=== PATIENT | male | born 1950 | race Caucasian/White ===

== ENCOUNTER 2017-02-15 17:47 | Inpatient (IN) | payer MEDICARE, OTHER ==
[~2017-02-15] VITALS: Ht 182.9 cm; Wt 74.2 kg
[2017-02-15] MEDS ORDERED: ATEN25TA PO (17:58)
[2017-02-15] MEDS ORDERED: BACL10TA2 PO (17:58)
[2017-02-15] MEDS ORDERED: VITA50003 (17:58)
[2017-02-15] MEDS ORDERED: ZOLP5TAB (17:58)
[2017-02-15] MEDS ORDERED: AMIT10TA (17:58)
[2017-02-15] MEDS ORDERED: NS 1,000 ML IV SCH (18:56)
[2017-02-15 19:25] LABS: BASO % 0.5 % (0.0-1.0); EOS # 0.2 K/mm3 (0.0-0.50); EOS % 2.9 % (0.0-3.0); LARGE UNSTAINED CELL # 0.1 K/mm3 (0.0-0.4); LARGE UNSTAINED CELL % 1.7 % (0.0-4.0); LYMPH # 1.7 K/mm3 (1.5-4.5); LYMPH % 28.8 % (24.0-44.0); MEAN CORPUSCULAR HEMOGLOBIN 32.8 pg (27.0-33.0); MEAN CORPUSCULAR HGB CONC 33.7 g/dl (32.0-36.5); MEAN CORPUSCULAR VOLUME 97.3 fl (80.0-96.0); MONO # 0.4 K/mm3 (0.0-0.8); MONO % 7.1 % (0.0-5.0); NEUTROPHILS # 3.5 K/mm3 (1.8-7.7); PLATELET COUNT, AUTOMATED 203 k/mm3 (150-450); RED CELL DISTRIBUTION WIDTH 12.5 % (11.5-14.5); WHITE BLOOD COUNT 5.9 K/mm3 (4.0-10.0)
--- NOTE | 2017-02-15 19:33 | ECGEPIP ---
Stationary ECG Study [facility] - ED Test Date: 2017-02-15 Pat Name: ALFREDITO CARRION Department: Room: - Gender: M Surgical Assistant: : 1950 Requested By: ZARINA Zamora Order Number: [id number] Reading MD: Hay Pascal Measurements Intervals [place] Rate: 122 P: FL: 0 QRS: 7 QRSD: 92 T: -18 QT: 320 QTc: 457 Interpretive Statements ATRIAL FIBRILLATION WITH RAPID VENTRICULAR RESPONSE LOW QRS VOLTAGE IN EXTREMITY LEADS MODERATE ST DEPRESSION NO PRIORS Electronically Signed On 02-15-2017 19:33:17 EDT by Hay Pascal
[2017-02-15 19:48] LABS: ALBUMIN 3.3 GM/DL (3.2-5.2); ALBUMIN/GLOBULIN RATIO 0.79 (1.00-1.93); BILIRUBIN,DIRECT 0.2 MG/DL (0.0-0.2); BILIRUBIN,TOTAL 0.7 MG/DL (0.2-1.0); CALCIUM LEVEL 8.5 MG/DL (8.8-10.2); CREATININE FOR GFR 1.35 MG/DL (0.70-1.30); GLOMERULAR FILTRATION RATE 56.1 (>49); POTASSIUM SERUM 4.3 MEQ/L (3.5-5.1); TOTAL PROTEIN 7.5 GM/DL (6.4-8.2)
[2017-02-15] MEDS: METOPROLOL 5 MG/5 ML VIAL IV SCH ×3 (20:14→20:44)
[2017-02-15] MEDS ORDERED: ATENOLOL 50 MG TAB PO ONE (21:30)
[2017-02-15] MEDS ORDERED: ERGO500014 PO (21:34)
[2017-02-15] MEDS ORDERED: SENOKOT S TAB PO ONE (21:45)
[2017-02-15] MEDS ORDERED: DIGOXIN INJ 0.5 MG/2 ML AMP (J1160) IV ONE (21:45)
[2017-02-15] MEDS ORDERED: RIVAROXABAN 20 MG TAB (XARELTO) PO ONE (21:45)
[2017-02-15] MEDS ORDERED: MOM 30ML SUSPENSION UDC PO ONE (21:45)
[2017-02-15 23:10] VITALS: BP 98/64
[2017-02-16] MEDS ORDERED: MOM 30ML SUSPENSION UDC PO PRN (02:15)
[2017-02-16] MEDS ORDERED: NS 1,000 ML IV SCH (02:15)
[2017-02-16] MEDS ORDERED: FLEET ENEMA PR PRN (02:15)
[2017-02-16 04:00] VITALS: BP 100/70
[2017-02-16] MEDS ORDERED: DIGOXIN INJ 0.5 MG/2 ML AMP (J1160) IV ONE (04:00)
[2017-02-16 05:37] LABS: BASO % 0.6 % (0.0-1.0); EOS # 0.1 K/mm3 (0.0-0.50); LARGE UNSTAINED CELL # 0.1 K/mm3 (0.0-0.4); LARGE UNSTAINED CELL % 1.5 % (0.0-4.0); LYMPH # 1.4 K/mm3 (1.5-4.5); LYMPH % 21.2 % (24.0-44.0); MEAN CORPUSCULAR HEMOGLOBIN 32.5 pg (27.0-33.0); MEAN CORPUSCULAR HGB CONC 34.1 g/dl (32.0-36.5); MEAN CORPUSCULAR VOLUME 95.5 fl (80.0-96.0); MONO # 0.5 K/mm3 (0.0-0.8); MONO % 7.8 % (0.0-5.0); NEUTROPHILS % 66.9 % (36.0-66.0); PLATELET COUNT, AUTOMATED 173 k/mm3 (150-450); RED CELL DISTRIBUTION WIDTH 12.7 % (11.5-14.5)
[2017-02-16 05:54] LABS: ANION GAP 8 MEQ/L (8-16); BLOOD UREA NITROGEN 24 MG/DL (7-18); CALCIUM LEVEL 8.1 MG/DL (8.8-10.2); CARBON DIOXIDE LEVEL 23 MEQ/L (21-32); CHLORIDE LEVEL 109 MEQ/L (98-107); CREATININE FOR GFR 1.23 MG/DL (0.70-1.30); DIGOXIN LEVEL 1.2 NG/ML (0.5-2.0); GLOMERULAR FILTRATION RATE > 60.0 (>49); GLUCOSE, FASTING 80 MG/DL (80-110); POTASSIUM SERUM 4.3 MEQ/L (3.5-5.1); SODIUM LEVEL 140 MEQ/L (136-145)
--- NOTE | 2017-02-16 07:46 | REP ---
Clinical: Altered mental status. Technique: PA and lateral chest. Findings: Mediastinum and cardiac silhouette are normal. Diffuse chronic interstitial changes are suspected and should be correlated clinically. Lateral view raises the possibility of trace basilar atelectasis. No effusion. No pneumothorax. Skeletal structures intact. Impression: Chronic interstitial changes are suggested. Trace basilar atelectasis cannot be excluded. Signed by Mark Conrad MD 02/16/2017 07:37 A
--- NOTE | 2017-02-16 07:57 | REP ---
Clinical: Constipation. Technique: Supine views of the chest and abdomen/pelvis. Findings: Frontal view of the chest suggests chronic interstitial changes and should be correlated clinically. Bowel gas pattern is nonspecific although mild/moderate fecal stasis involving the ascending colon and rectum are suggested. Skeletal structures demonstrate age-related degenerative changes. No organomegaly. No abnormal calcifications. Impression: Possible fecal stasis. No evidence for bowel obstruction. Signed by Mark Conrad MD 02/16/2017 07:49 A
[2017-02-16 08:00] VITALS: BP 105/62
--- NOTE | 2017-02-16 08:46 | HPE ---
DATE OF ADMISSION: 02/15/2017 PRIMARY CARE PHYSICIAN: Derrick Moran INPATIENT HOSPITALIST ATTENDING: Dr. Cherelle Flores CHIEF COMPLAINT: The patient is nonverbal. History is obtained from medical records as no family members are available. Per records, the patient had, per the sister, the patient has not had a bowel movement in 2 weeks. HISTORY OF THE PRESENT ILLNESS: This is a 67-year-old DO NOT RESUSCITATE, DO NOT INTUBATE, nonverbal patient, wheelchair bound with a history of ALS, atrial fibrillation, not on anticoagulation, on chronic atenolol, chronic interstitial lung disease and fibrosis, who was brought in by the family due to a 2-week history of constipation without bowel movements at home. Per records, the patient has not been voiding regularly. His sister reports that this may be the end of the disease process and was brought in for further evaluation. The patient is nonverbal. Otherwise denied any fever or chills. No worsening shortness of breath, chest pain, pressure, tightness or lightheadedness. No dysuria, urgency or frequency. The patient is contracted with very dry skin. He was found to have acute kidney injury, creatinine of 1.35, given intravenous fluids in the emergency room. Chest x-ray shows chronic fibrosis. Abdominal film shows nonspecific bowel gas pattern. CT of the head shows chronic microvascular disease. No acute cerebrovascular accident. According to family, the patient has also had some altered mental status. Workup included CBC, metabolic panel, all of which are unremarkable aside from acute kidney injury, most likely due to dehydration due to decreased oral intake. Urinalysis was negative. No antibiotics given in the emergency room (ER). Hospitalist service was called for admission for evaluation of altered mental status, treatment for acute kidney injury and atrial fibrillation with rapid ventricular response (RVR). Before hospitalist service was called, EKG showed atrial fibrillation, ventricular rate of 22. Clinical Informatics Physician manager occupational, Dr. Singh, recommended atenolol 50 mg. The patient received 50 mg dose in the emergency room. Blood pressure dropped into a systolic pressure of 98. The patient continued to have a heart rate of 115 to 122. Hospitalist service was called for admission for atrial fibrillation with RVR, altered mental status, acute kidney injury with chronic history of ALS and prior history of paroxysmal atrial fibrillation, not on chronic anticoagulation. Due to systolic pressure of 98, the patient was given intravenous digoxin, improvement in heart rate to 76. At the bedside, still in atrial fibrillation. PAST MEDICAL HISTORY ALS. Chronic pulmonary interstitial fibrosis. Prior history of paroxysmal atrial fibrillation, not on anticoagulation. PAST SURGICAL HISTORY: Unknown. SOCIAL HISTORY: Lives with sister. DO NOT RESUSCITATE, DO NOT INTUBATE. No alcohol or cigarette use. FAMILY HISTORY: Unknown. REVIEW OF SYSTEMS: Could not be obtained as the patient is nonverbal, no one is at the bedside. PHYSICAL EXAMINATION: Temperature 97.9, pulse 60, respiratory rate 18, blood pressure 121/81 at 18:09. At 21:27 heart rate atrial fibrillation, ventricular rate of 129. Blood pressure 98/64, 98% on room air. Generally, the patient moans to his name. He is awake, alert, oriented to his name only. He is nonverbal. He is contracted. Muscle atrophy. Appears older than his stated age. No respiratory distress. No jugular venous distention. No thyromegaly. No cervical lymphadenopathy. Tongue is moist. Lungs are clear to auscultation. No wheezing, rales, or rhonchi. Heart: S1, S2, irregularly irregular. Abdomen is soft, nontender, nondistended. Positive bowel sounds. No sacral decubitus. The patient has very dry skin with sloughing of his skin bilateral lower extremities. Onychomycosis bilateral toes on both feet, contracted with significant muscle atrophy of the bilateral lower extremities. The patient has purposeful movements , opens his eyes and moans. LABORATORY DATA: White count 5.9, hemoglobin 15, hematocrit 47, platelet count 203. Sodium 139, potassium 4.3, chloride 106, bicarbonate 26, BUN 26, creatinine 1.35. Previous creatinine was 1.2 in 2012. Glucose of 77, calcium 8.5, troponin less than 0.02, total CK 126, MB fraction of 3.5, albumin of 3.3. Urinalysis; Clear appearance. Negative nitrite, negative leukocyte esterase, 0 WBCs, negative bacteria. CT of the head: Chronic microvascular changes. Chest x-ray: Chronic interstitial lung fibrosis and atelectasis. Abdominal x-ray: Nonspecific bowel gas pattern. ASSESSMENT AND PLAN: This is a 67-year-old male, DO NOT RESUSCITATE, DO NOT INTUBATE with a history of ALS, chronically wheelchair bound, nonverbal at baseline, lives with his sister at home, chronic interstitial fibrosis and history of paroxysmal atrial fibrillation, not on anticoagulation, was brought in by the family due to complaints of severe constipation for the past 2 weeks and decreased urination. The patient was found in the emergency room to have atrial fibrillation with rapid ventricular response, ventricular rate of 122 to 126, acute kidney injury, creatinine of 1.35 from baseline of 1.2 and is admitted for atrial fibrillation with rapid ventricular response and intravenous fluids. Per the sister, the patient had altered mental status evaluation, also included a CT of the head, nothing focal and unchanged chronically. Per the sister, CT of the head showed no acute cerebrovascular accident. The patient will be admitted as an inpatient for two midnights for the following issues, assigned to Dr. Cherelle Flores at 7:00 a.m. on 02/16/2017: 1. Altered mental status. Multifactorial. May be secondary to dehydration with acute kidney injury, severe constipation, atrial fibrillation with rapid ventricular response. CT rules out acute cerebrovascular accident. The patient is nonverbal at baseline. Difficult to assess clinically. No acute infectious process. Urinalysis is negative. Chest x-ray shows no acute infiltrate. No empiric antibiotics for now. Continue to monitor clinically and rely on family for baseline mental state. 2. Acute kidney injury. Fluid hydration trial with normal saline 100 mL per hour times one liter. 3. Constipation. Bowel regimen with Senokot two tablets by mouth twice a day, Milk of Magnesia 30 mL times one now, every 4 hours as needed and Fleets enema, MiraLAX 30 mL daily. 4. ALS. Progressive and chronic. The patient is currently DO NOT RESUSCITATE, DO NOT INTUBATE, significant muscle atrophy, unable to speak. No current intervention. 5. History of chronic interstitial fibrosis with some atelectasis, chronic, most likely secondary to ALS. Titrate to oxygen to greater than 90% if needed. 6. Atrial fibrillation with rapid ventricular rate. Patient responded well to atenolol but blood pressure had dropped down to 90s; therefore, the patient was given three doses of intravenous digoxin 0.5, 0.25 and 0.25. The patient is to have a repeat digoxin level in the morning. Hold if digoxin level is greater than 2. Continue with atenolol 50 mg daily. Decrease if the patient's blood pressure is an issue. Anticoagulation with Eliquis. Defer to family if they would like to continue this as an outpatient, knowing that the patient has poor prognosis from ALS in general and may have an increased risk of bleeding in the future with Lamar on board. 7. Chronic interstitial pulmonary fibrosis. No acute intervention. Saturating well on room air at 98%. 8. Deep vein thrombosis (DVT) prophylaxis. Currently started on Xarelto for atrial fibrillation, compression stockings. 9. CODE STATUS: DO NOT RESUSCITATE, DO NOT INTUBATE. MTDD
[2017-02-16] MEDS ORDERED: DIGOXIN 0.125 MG TAB PO SCH (09:00)
[2017-02-16] MEDS: MIRALAX *UNIT DOSE* 17GM PACKET PO SCH (09:19)
[2017-02-16] MEDS: SENOKOT S TAB PO SCH ×2 (09:20→21:26)
[2017-02-16] MEDS: ATENOLOL 25 MG TAB PO SCH (09:21)
[2017-02-16] MEDS: BACLOFEN 10 MG TAB PO SCH ×2 (09:21→21:27)
[2017-02-16 12:00] VITALS: BP 108/50
--- NOTE | 2017-02-16 14:25 | REP ---
Clinical: Altered mental status. Comparison: None . Findings: Age-related atrophy and microvascular ischemic changes are appreciated. The ventricles and sulci are symmetric. Moeller-white differentiation is maintained. There is no evidence for acute intracranial hemorrhage, mass/mass effect, pathology or infarction. No extra-axial fluid collection. Calvarium is intact. Paranasal sinuses and mastoid air cells are clear. Impression: Age related atrophy and microvascular ischemic changes. No acute intracranial hemorrhage, infarction, or mass/mass effect. Signed by Mark Conrad MD 02/16/2017 02:17 P
--- NOTE | 2017-02-16 14:59 | ECHO ---
DATE OF PROCEDURE: 02/16/2017 DATE OF : 1950 AGE: 67 GENDER: Male HEIGHT: 72 inches WEIGHT: 165 pounds BODY SURFACE AREA: 1.96 meters squared INPATIENT: Progressive care unit (PCU), room 3213 REFERRING PHYSICIAN: Dr. Cherelle Flores INDICATION: Abnormal EKG, atrial fibrillation. MEASUREMENTS 2D measurements: RV: 3.8 cm LV: 3.5 cm Septum: 1.1 cm Posterior wall: 1.1 cm Aortic root: 3.2 cm LA: 4.8 cm LVEF: 65% DOPPLER MEASUREMENTS: AV: 0.91 m/s LVOT: 0.9 m/s MV-E: 80 Early mitral deceleration time: 204 ms E prime: 9.6 E/E prime ratio: 8.3 PV: 0.8 m/s Pulmonary artery acceleration time: 113 ms COMMENTS: Underlying atrial fibrillation with controlled ventricular response. No intraventricular conduction disturbance. Technically difficult study in light of the patient's body habitus but some diagnostically useful information was still obtained. Moderately dilated left atrium but normal left ventricular size. Right heart chamber sizes was upper limits of normal. LV wall thickness was upper limits of normal. On real-time imaging from the parasternal and apical projections, wall motion was symmetrical and hyperkinetic. Mildly thickened mitral annulus but normal leaflet thickness and excursion with no posterior systolic buckling. Three equal size aortic cusps of normal thickness and cusp separation. Normal aortic root size. No apparent intracardiac mass or pericardial effusion. Color flow Doppler study taken from the parasternal and apical projections showed trace mitral but no apparent tricuspid or aortic insufficiency. Guided continuous wave Doppler of his aortic valve showed a normal peak systolic velocity against LV outflow tract obstruction. Pulsed and continuous wave Doppler of his LV inflow tract taken from the apical four-chamber projection showed normal diastolic filling velocities against mitral stenosis. There was only early diastolic/passive filling pattern as we would expect with atrial fibrillation. Using pulsed and tissue Doppler of his mitral annulus, his current estimated mean left atrial pressure was within normal limits. Pulsed and continuous wave Doppler of his pulmonary trunk taken from the parasternal short axis projection showed a normal peak systolic velocity against RV outflow tract obstruction. His pulmonary artery acceleration time was also normal against an elevated pulmonary vascular resistance. We attempted to further estimate his right ventricular systolic pressure using guided continuous wave Doppler of his tricuspid valve, but there was no tricuspid insufficiency. We could not visualize his inferior vena cava to further estimate his central venous pressure. CONCLUSIONS: Technically difficult study. Normal left ventricular size, wall thickness and hyperkinetic wall motion. Moderately dilated left atrium with currently normal Doppler assessment of mean left atrial pressure. Normal right heart chamber sizes and contraction with single Doppler sign suggestive of a normal pulmonary vascular resistance. Mild mitral annular calcification without inflow tract obstruction and only trace insufficiency.
[2017-02-16 16:00] VITALS: BP 127/66
[2017-02-16 20:00] VITALS: BP 125/55
[2017-02-16] MEDS ORDERED: RIVAROXABAN 20 MG TAB (XARELTO) PO SCH (21:00)
[2017-02-17] VITALS: BP 141/55
[2017-02-17 04:00] VITALS: BP 110/56
[2017-02-17 05:34] LABS: MEAN CORPUSCULAR HEMOGLOBIN 33.1 pg (27.0-33.0); MEAN CORPUSCULAR HGB CONC 35.2 g/dl (32.0-36.5); MEAN CORPUSCULAR VOLUME 94.1 fl (80.0-96.0); RED CELL DISTRIBUTION WIDTH 12.6 % (11.5-14.5); WHITE BLOOD COUNT 6.2 K/mm3 (4.0-10.0)
[2017-02-17 05:49] LABS: ANION GAP 8 MEQ/L (8-16); BLOOD UREA NITROGEN 19 MG/DL (7-18); CALCIUM LEVEL 8.3 MG/DL (8.8-10.2); CARBON DIOXIDE LEVEL 23 MEQ/L (21-32); CHLORIDE LEVEL 104 MEQ/L (98-107); GLOMERULAR FILTRATION RATE > 60.0 (>49); GLUCOSE, FASTING 83 MG/DL (80-110); POTASSIUM SERUM 3.9 MEQ/L (3.5-5.1); SODIUM LEVEL 135 MEQ/L (136-145)
[2017-02-17 08:00] VITALS: BP 86/52
[2017-02-17] MEDS: BACLOFEN 10 MG TAB PO SCH ×2 (09:40→21:14)
[2017-02-17] MEDS: MIRALAX *UNIT DOSE* 17GM PACKET PO SCH (09:40)
[2017-02-17] MEDS: SENOKOT S TAB PO SCH ×2 (09:41→21:13)
[2017-02-17] MEDS: ATENOLOL 25 MG TAB PO SCH (09:44)
[2017-02-17 12:00] VITALS: BP 129/67
--- NOTE | 2017-02-17 13:02 | IPN ---
DATE: 02/17/2017 SUBJECTIVE: The patient has garbled speech at his baseline, but demonstrates that he can answer questions. When asked if he is in any pain or discomfort, he answers no. He denies other complaints. OBJECTIVE: VITAL SIGNS: Temperature 98.3, pulse 82, respiratory rate 19, blood pressure 96/52, oxygen saturation 96% on room air. GENERAL: He is a man sitting up in bed in no distress. HEENT: He does not cooperate with cranial nerve testing. He is able to stick his tongue out, which shows moist mucous membranes. CARDIOVASCULAR EXAM: S1, S2 irregularly irregular. Not tachycardic. RESPIRATORY EXAM: Clear but poor respiratory effort. ABDOMINAL EXAM: Bowel sounds present. The abdomen is soft. EXTREMITIES: No clubbing, cyanosis or edema. He has chronic contractures and wasting of the interossei. He has hyperreflexia. LABORATORY STUDIES: WBC 6.2, hemoglobin 13.8, platelet count 177. Chemistry panel: Sodium 135, potassium 3.9, chloride 104, bicarbonate 23, BUN 19, creatinine 1.2. Three sets of cardiac enzymes are negative. TSH is within normal limits. Urinalysis unremarkable. Urine culture is negative. IMAGING: The patient had a CT scan of the head, which revealed age related atrophy and microvascular ischemic changes. No acute intracranial hemorrhage, infarction or mass effect. He had a chest x-ray that revealed chronic interstitial changes. He had an abdominal x-ray that revealed possible fecal stasis. No evidence of bowel obstruction. ASSESSMENT AND PLAN: This is a 67-year-old man who was dropped off to the emergency room by his family, as he had not had a bowel movement for two weeks. PROBLEMS: 1. Amyotrophic lateral sclerosis (ALS). The patient has constipation associated with his ALS, which is fairly advanced disease. He has been treated with MiraLAX, milk of magnesia, Fleet enema as needed. He has had bowel movements. He is on Baclofen 50 mg twice a day. Family had noticed nursing staff that they cannot care for him at home and as such patient and family services (PFS) consult has been placed and he will likely require fpc placement for the remainder of his life. The patient is DO NOT RESUSCITATE, DO NOT INTUBATE. He is wheelchair bound. At his baseline, he has garbled speech but is able to follow some basic commands and answer yes or no questions and does demonstrate understanding of questions and is able to say good morning and good-bye to providers entering and leaving the room. 2. Urinary retention, likely related to constipation. Now that the patient has had bowel movements, we will discontinue Olguin catheter and give him a voiding trial. 3. Interstitial fibrosis and atelectasis. Most likely related to ALS. He is comfortable on room air for the time being. 4. Atrial fibrillation. The patient has known atrial fibrillation. He presented with rapid ventricular response and was briefly on digoxin and Xarelto. Given his CHAD2S score appears to be 0, I will discontinue anticoagulation. He did have an echocardiogram but does not appear to have any valvular of atrial fibrillation. As such, we will discontinue anticoagulation. He is on atenolol for rate control. Heart rate is mildly hypertensive. He was titrated up to 50 mg upon admission when he was in rapid ventricular response. I feel like he was in rapid ventricular response most likely secondary to abdominal pain and now that he has had bowel movements and is more comfortable, we can titrate it back down to 25 mg. He also has received a dose of digoxin, which appears he no longer needs and I will discontinue this. 5. Deep vein thrombosis (DVT) prophylaxis. The patient is wheelchair bound and bed ridden at baseline. DISPOSITION: The patient is DO NOT RESUSCITATE, DO NOT INTUBATE. He will likely need placement and a patient and family services (PFS) consult has been placed. Physical therapy (PT) consult has been placed in order to help with disposition planning, although he seems like he would be appropriate for snf. BERNARD
[2017-02-17 20:00] VITALS: BP 96/61
[2017-02-17 20:28] VITALS: BP 90/65
[2017-02-18 06:00] VITALS: BP 98/55
[2017-02-18 06:48] LABS: MEAN CORPUSCULAR HEMOGLOBIN 33.6 pg (27.0-33.0); MEAN CORPUSCULAR VOLUME 93.6 fl (80.0-96.0); RED CELL DISTRIBUTION WIDTH 12.6 % (11.5-14.5); WHITE BLOOD COUNT 5.8 K/mm3 (4.0-10.0)
[2017-02-18 07:08] LABS: ANION GAP 9 MEQ/L (8-16); BLOOD UREA NITROGEN 17 MG/DL (7-18); CALCIUM LEVEL 8.3 MG/DL (8.8-10.2); CARBON DIOXIDE LEVEL 23 MEQ/L (21-32); CHLORIDE LEVEL 102 MEQ/L (98-107); CREATININE FOR GFR 1.12 MG/DL (0.70-1.30); GLOMERULAR FILTRATION RATE > 60.0 (>49); GLUCOSE, FASTING 86 MG/DL (80-110); MAGNESIUM LEVEL 1.9 MG/DL (1.8-2.4); POTASSIUM SERUM 3.8 MEQ/L (3.5-5.1); SODIUM LEVEL 134 MEQ/L (136-145)
[2017-02-18] MEDS: SENOKOT S TAB PO SCH ×2 (09:00→20:56)
[2017-02-18] MEDS: MIRALAX *UNIT DOSE* 17GM PACKET PO SCH (09:00)
[2017-02-18] MEDS: BACLOFEN 10 MG TAB PO SCH ×2 (10:39→20:57)
[2017-02-18] MEDS: ATENOLOL 25 MG TAB PO SCH (10:40)
--- NOTE | 2017-02-18 12:59 | IPN ---
DATE OF EXAMINATION: 02/18/2017 SUBJECTIVE: The patient reports that he has no complaints. He is able to answer yes or no questions. He denies chest pain, shortness of breath, fevers, chills, nausea, vomiting, or diarrhea. OBJECTIVE: VITAL SIGNS: Temperature 97.8, pulse 71, respiratory rate 18, blood pressure (BP) 98/55, oxygen (O2) saturation 97% on room air. GENERAL: He is a pleasant elderly man sitting up in bed. He will answer yes or no questions and mumble responses, but it is difficult to discern what he is saying. He is in no distress. HEENT: He has moist mucous membranes. No elevation in central venous pressure (CVP). CARDIOVASCULAR EXAMINATION: S1, S2. RESPIRATORY EXAMINATION: Clear with diminished breath sounds at the bases with a poor effort. ABDOMINAL EXAMINATION: Benign. EXTREMITIES: No clubbing, cyanosis, or edema. Chronic contractures and muscle wasting of the interossei and hyperreflexia. LABORATORY STUDIES: WBC 5.8, hemoglobin 14.4, hematocrit 40.1, platelet count 178. Chemistry panel: Sodium 134, potassium 3.8, chloride 102, bicarbonate 23, BUN 17, creatinine 1.1. Urine culture is negative. No new imaging. ASSESSMENT AND PLAN: This is a 67-year-old man with advanced amyotrophic lateral sclerosis (ALS) brought to the emergency room (ER) for constipation. PROBLEMS: 1. Constipation. At presentation to the ER, the patient had not had a bowel movement for 2 weeks, and he was having urinary retention. He has been started on an aggressive bowel regimen. He is having regular bowel movements now at this time. It is likely related to his progressing ALS. 2. Urinary retention, likely related to constipation. Now that the patient is having bowel movements, his Olguin catheter has been discontinued, and he is spontaneously voiding. 3. Advanced amyotrophic lateral sclerosis. Continue with bowel regimen. He is DO NOT RESUSCITATE (DNR) and DO NOT INTUBATE (DNI). There has been some conflicting information from the family. One nurse was reportedly told by the family that the patient would not be able to return home. A patient and family services (PFS) consult was placed. However, now, the family is saying that they wish to have him back home. Physical therapy has evaluated the patient and feels that the family will need training on how to operate a Dylan lift for the patient's transfers. We have arranged this for later today. I suspect the patient will be able to return home once his family are better trained and have some additional help at home to care for the patient. He is a DNR and DNI. He is able to mumble appropriate response and demonstrates understanding to questions. 3. Interstitial fibrosis and atelectasis. Likely related to ALS. He is comfortable on room air for the time being. 4. Atrial fibrillation. He has old atrial fibrillation. He was briefly on anticoagulation. However, his CHAD2S score appears to be 0, and the echocardiogram did not reveal valvular atrial fibrillation. As such, anticoagulation was discontinued. He is on atenolol for rate control. He was likely in rapid ventricular response secondary to urinary retention and abdominal pain from constipation. With resolution of these two symptoms, he has no longer been rapid. He was briefly on digoxin, which he does not appear to need. 5. Deep vein thrombosis (DVT) prophylaxis. The patient is wheelchair-bound at his baseline. Sequentials and thromboembolic deterrents (TEDs). DISPOSITION: Pending physical therapy (PT) evaluation and appropriate interventions at home. The patient may be able to return home within the next 24-48 hours.
[2017-02-18 14:00] VITALS: BP 81/56
[2017-02-18 19:15] VITALS: BP 92/56
[2017-02-18 22:00] VITALS: BP 106/58
[2017-02-19 06:00] VITALS: BP 96/59
[2017-02-19 07:26] LABS: MEAN CORPUSCULAR HEMOGLOBIN 33.2 pg (27.0-33.0); MEAN CORPUSCULAR HGB CONC 35.2 g/dl (32.0-36.5); MEAN CORPUSCULAR VOLUME 94.2 fl (80.0-96.0); RED CELL DISTRIBUTION WIDTH 12.7 % (11.5-14.5); WHITE BLOOD COUNT 6.1 K/mm3 (4.0-10.0)
[2017-02-19 07:37] LABS: ANION GAP 6 MEQ/L (8-16); BLOOD UREA NITROGEN 16 MG/DL (7-18); CALCIUM LEVEL 8.5 MG/DL (8.8-10.2); CARBON DIOXIDE LEVEL 27 MEQ/L (21-32); CHLORIDE LEVEL 102 MEQ/L (98-107); CREATININE FOR GFR 1.14 MG/DL (0.70-1.30); GLOMERULAR FILTRATION RATE > 60.0 (>49); GLUCOSE, FASTING 83 MG/DL (80-110); MAGNESIUM LEVEL 2.1 MG/DL (1.8-2.4); POTASSIUM SERUM 4.2 MEQ/L (3.5-5.1); SODIUM LEVEL 135 MEQ/L (136-145)
[2017-02-19 08:00] VITALS: BP 88/57
[2017-02-19 09:00] VITALS: BP 88/57
[2017-02-19] MEDS: ATENOLOL 25 MG TAB PO SCH (09:00)
[2017-02-19] MEDS: MIRALAX *UNIT DOSE* 17GM PACKET PO SCH (10:18)
[2017-02-19] MEDS: BACLOFEN 10 MG TAB PO SCH (10:18)
[2017-02-19] MEDS: SENOKOT S TAB PO SCH (10:18)
[2017-02-19] MEDS ORDERED: PEG1POW PO (11:32)
--- NOTE | 2017-02-20 21:40 | DSES ---
DATE OF ADMISSION: 02/15/2017 DATE OF DISCHARGE: 02/19/2017 PRIMARY CARE PHYSICIAN: Derrick Moran MD CONSULTANTS: None. PROCEDURES: None. DISCHARGE HOME MEDICATIONS: - polyethylene glycol one pack by mouth daily as needed for constipation - atenolol 25 mg by mouth daily - baclofen 50 mg by mouth twice a day - ergocalciferol 08592 units by mouth once a week PRIMARY DIAGNOSIS: - Amyotrophic lateral sclerosis (ALS) SECONDARY DIAGNOSIS: 1. Urinary retention. 2. Interstitial fibrosis and atelectasis. 3. Atrial fibrillation. HOSPITAL COURSE: Mr. Chen is a 67-year-old, who was brought in by the family due to two week history of constipation without bowel movement. Apparently, the patient has not been voiding regularly. At the time of presentation, the patient had altered mental status and CT ruled out acute cerebrovascular disease. The patient is nonverbal at baseline. Difficult to assess clinically. No acute infectious process was identified. Urinalysis was negative. Chest x-ray shows no acute infiltration. The patient was not started on any antibiotic. However, the patient was started on normal saline due to acute renal failure. Due to constipation, the patient was started on Senokot two tablets by mouth twice a day, as well as Milk of Magnesium. The patient has a history of chronic interstitial fibrosis with some atelectasis, chronic , most likely secondary to amyotrophic lateral sclerosis. The patient was started on oxygen with a saturation greater than 90%. The patient also has a history of atrial fibrillation with rapid ventricular response. However, the patient responded to atenolol. However, blood pressure was dropped to 90s. Therefore, the patient was given three doses of digoxin 0.5, 0.25 and 0.25 mg. We did the digoxin level and the patient was continued with atenolol. The patient was also on Eliquis. Due to the patient's CHADS2 score, CHADS2 score appeared to be 0. Xarelto was stopped. He had an echocardiogram, which did not show any valvular pathology related to atrial fibrillation. At the time of discharge, the patient was medically stabilized. Patient Family Services (PFS) was also consulted and regarding body Dylan pad. Physical therapy (PT)/occupational therapy (OT), did the Dylan training with the family yesterday; the day before discharge, and discussed the patient's safety for home, as long as the patient had full body Dylan pad on discharge. DISCHARGE PLACEMENT: Home. FOLLOWUP: Please followup with your primary care within one week. ACTIVITY: Activity as tolerated. My preceptor for this patient encounter was Dr. Flores. The preceptor was physically present in the building during the encounter and was fully available. As needed, all aspects of the patient interview, examination, medical decision making process, and medical care plan development were reviewed and approved by the preceptor. The preceptor is aware and concurs with the plan as stated in the body of this note and will attest to such by his/her cosignature.
== END 2017-02-19 13:30 | disposition home health service (06) | DRG 392 ==
LOC: EDBD 17:47 → M ED 19:19 → M ED INP 21:30 → M PCU 23:06 → M MS4PR 02-17 20:24
PROVIDERS: ADMIT General Practice; ATTEND Internal Medicine
DX: K59.00 Constipation, unspecified (principal); N17.9 Acute kidney failure, unspecified; J98.11 Atelectasis; G12.21 Amyotrophic lateral sclerosis; I48.0 Paroxysmal atrial fibrillation; Z79.899 Other long term (current) drug therapy; J84.10 Pulmonary fibrosis, unspecified; R33.8 Other retention of urine; Z66 Do not resuscitate; E86.0 Dehydration

== ENCOUNTER → 2017-08-19 | Outpatient (CLI) | payer MEDICARE, OTHER ==
[~2017-08-19] MED LIST: AMIT10TA; AMIT10TA PO; ATEN25TA PO; BACL10TA2 PO; ERGO500014 PO; PEG1POW PO; VITA1CAP40; ZOLP5TAB
[2017-08-19 17:15] LABS: BASO % 0.3 % (0.0-1.0); EOS % 0.1 % (0.0-3.0); IMMATURE GRANULOCYTE % 0.3 % (0-0); LYMPH # 1.4 10^3/uL (1.5-4.5); LYMPH % 15.7 % (24.0-44.0); MEAN CORPUSCULAR HGB CONC 34.4 g/dl (32.0-36.5); MONO # 0.6 10^3/uL (0.0-0.8); NEUTROPHILS # 6.9 10^3/uL (1.8-7.7); NEUTROPHILS % 76.6 % (36.0-66.0); PLATELET COUNT, AUTOMATED 232 10^3/uL (150-450); RED CELL DISTRIBUTION WIDTH 12.4 % (11.5-14.5); WHITE BLOOD COUNT 9.1 10^3/uL (4.0-10.0)
[2017-08-19 17:18] LABS: ALBUMIN 3.7 GM/DL (3.2-5.2); ALBUMIN/GLOBULIN RATIO 0.86 (1.00-1.93); BILIRUBIN,DIRECT 0.2 MG/DL (0.0-0.2); BILIRUBIN,TOTAL 0.8 MG/DL (0.2-1.0)
== END ==
LOC: M WUC 14:06
PROVIDERS: ATTEND Psychiatry & Neurology Neurology
DX: G12.21 Amyotrophic lateral sclerosis (principal)

== ENCOUNTER 2017-08-21 11:31 | Emergency (ER) | payer OTHER, MEDICARE ==
[~2017-08-21] VITALS: Ht 185.4 cm; Wt 70.3 kg
[~2017-08-21 11:31] MED LIST changes: -AMIT10TA PO
[2017-08-21] MEDS ORDERED: AMIT10TA PO (11:41)
[2017-08-21] MEDS ORDERED: NS 1,000 ML IV SCH (12:01)
--- NOTE | 2017-08-21 12:34 | REP ---
Clinical: Altered mental status. Comparison: 02/15/2017. Findings: Pulmonary vascular congestion as well as basilar atelectasis cannot be excluded and should be correlated clinically. No effusion. No pneumothorax. Mediastinum and cardiac silhouette are stable and within normal limits. Skeletal structures are intact. Impression: Cannot exclude pulmonary vascular congestion and/or basilar atelectasis. Signed by Mark Conrad MD 08/21/2017 12:26 P
--- NOTE | 2017-08-21 12:36 | REP ---
Clinical: Altered mental status. Comparison: 02/15/2017 . Findings: Atrophy and microvascular ischemic changes are appreciated. The ventricles and sulci are symmetric. Moeller-white differentiation is maintained. There is no evidence for acute intracranial hemorrhage, mass/mass effect, pathology or infarction. No extra-axial fluid collection. Calvarium is intact. Paranasal sinuses and mastoid air cells are clear. Impression: Atrophy and microvascular ischemic changes. No acute intracranial hemorrhage, infarction, or mass/mass effect. Signed by Mark Conrad MD 08/21/2017 12:28 P
[2017-08-21 12:45] LABS: VENOUS BASE EXCESS -4.3 (-2.0-2.0); VENOUS O2 SATURATION 91.2 % (60.0-80.0); VENOUS PARTIAL PRESSURE CO2 33.4 mmHg (38.0-50.0); VENOUS PARTIAL PRESSURE O2 59.4 mmHg (30.0-50.0); VENOUS STANDARD HCO3 20.8 MEQ/L; VENOUS TOTAL CO2 20.7 MEQ/L (24.0-28.0)
[2017-08-21 12:50] LABS: BASO % 0.2 % (0.0-1.0); EOS % 0.3 % (0.0-3.0); IMMATURE GRANULOCYTE % 0.3 % (0-0); LYMPH # 1.2 10^3/uL (1.5-4.5); LYMPH % 12.7 % (24.0-44.0); MEAN CORPUSCULAR HGB CONC 34.7 g/dl (32.0-36.5); MEAN CORPUSCULAR VOLUME 92.2 fl (80.0-96.0); MONO # 0.7 10^3/uL (0.0-0.8); MONO % 7.3 % (0.0-5.0); NEUTROPHILS # 7.6 10^3/uL (1.8-7.7); NEUTROPHILS % 79.2 % (36.0-66.0); PLATELET COUNT, AUTOMATED 259 10^3/uL (150-450); RED CELL DISTRIBUTION WIDTH 12.3 % (11.5-14.5); WHITE BLOOD COUNT 9.6 10^3/uL (4.0-10.0)
[2017-08-21 12:53] LABS: ALBUMIN 3.6 GM/DL (3.2-5.2); ALKALINE PHOSPHATASE 96 U/L (45-117); ALT/SGPT 24 U/L (12-78); ANION GAP 15 MEQ/L (8-16); AST/SGOT 22 U/L (7-37); BILIRUBIN,DIRECT 0.3 MG/DL (0.0-0.2); BILIRUBIN,TOTAL 1.1 MG/DL (0.2-1.0); BLOOD UREA NITROGEN 35 MG/DL (7-18); CALCIUM LEVEL 9.1 MG/DL (8.8-10.2); CARBON DIOXIDE LEVEL 18 MEQ/L (21-32); CHLORIDE LEVEL 104 MEQ/L (98-107); CREATININE FOR GFR 1.07 MG/DL (0.70-1.30); GLOMERULAR FILTRATION RATE > 60.0 (>49); GLUCOSE, FASTING 76 MG/DL (80-110); POTASSIUM SERUM 4.4 MEQ/L (3.5-5.1); SODIUM LEVEL 137 MEQ/L (136-145); TOTAL PROTEIN 8.1 GM/DL (6.4-8.2)
[2017-08-21] MEDS ORDERED: BACLOFEN 10 MG TAB PO ONE ×2 (13:15→14:30)
[2017-08-21] MEDS ORDERED: BACL10TA2 PO (17:42)
[2017-08-21 17:45] VITALS: BP 125/74
[2017-08-21] MEDS ORDERED: ATENOLOL 25 MG TAB PO ONE (17:45)
[2017-08-21 18:04] VITALS: BP 125/74
--- NOTE | 2017-08-23 05:57 | ECGEPIP ---
Stationary ECG Study [facility] - ED Test Date: 2017-08-21 Pat Name: ALFREDITO CARRION Department: Room: - Gender: M [employer] Hand: EDWIN : 1950 Requested By: JHONY COHEN Order Number: [id number] Reading MD: Hay Pascal Measurements Intervals [place] Rate: 129 P: DE: 0 QRS: 4 QRSD: 90 T: 57 QT: 309 QTc: 453 Interpretive Statements ATRIAL FIBRILLATION WITH RAPID VENTRICULAR RESPONSE LOW QRS VOLTAGE IN EXTREMITY LEADS MODERATE ST DEPRESSION BASELINE ARTIFACT AFFECTS INTERPRETATION SIMILAR TO 02/15/17 Electronically Signed On 08-23-2017 5:57:11 EST by Hay Pascal
== END 2017-08-21 18:29 | disposition home or self-care (01) ==
LOC: M ED 11:31 → EDBD 11:31 → M ED 18:29
DX: R41.0 Disorientation, unspecified (principal); I48.91 Unspecified atrial fibrillation; G12.21 Amyotrophic lateral sclerosis; I10 Essential (primary) hypertension; F17.200 Nicotine dependence, unspecified, uncomplicated; Z82.49 Family history of ischemic heart disease and other diseases of the circulatory system; Z79.899 Other long term (current) drug therapy
CPT/HCPCS: 70450; 71010; 80048; 80076; 82140; 82550; 82553; 82803; 83605; 85025; 87040; 87077; 87186; 93005; 93041; 99285; G0480

== ENCOUNTER 2022-08-06 22:33 | Inpatient (IN) | payer MEDICARE, OTHER ==
[~2022-08-06] VITALS: Ht 185.4 cm; Wt 67.5 kg
[~2022-08-06 22:33] MED LIST changes: -AMIT10TA; +AMIT10TA7; +AMIT10TA7 PO; -ERGO500014 PO; -PEG1POW PO; +POLY17PO18 PO; -VITA1CAP40; +VITA500045 PO; +VITA50005
[2022-08-06] MEDS ORDERED: ASPIRIN 81 MG CHEW TABLET PO ONE (23:00)
[2022-08-06] MEDS ORDERED: ONDANSETRON 4MG 2ML VIAL IV ONE (23:00)
[2022-08-06] MEDS ORDERED: NS 1,000 ML IV ONE (23:00)
[2022-08-06 23:11] LABS: BASO % 0.3 % (0.0-1.0); EOS # 0.1 10^3/uL (0.0-0.5); EOS % 0.4 % (0.0-3.0); HEMATOCRIT 44.5 % (42.0-52.0); LYMPH # 0.8 10^3/uL (1.5-5.0); LYMPH % 5.7 % (24.0-44.0); MEAN CORPUSCULAR HEMOGLOBIN 32.2 pg (27.0-33.0); MEAN CORPUSCULAR HGB CONC 33.7 g/dl (32.0-36.5); MEAN CORPUSCULAR VOLUME 95.5 fl (80.0-96.0); MONO # 0.9 10^3/uL (0.0-0.8); MONO % 6.6 % (2.0-8.0); NEUTROPHILS # 11.9 10^3/uL (1.5-8.5); NEUTROPHILS % 86.6 % (36.0-66.0); PLATELET COUNT, AUTOMATED 261 10^3/uL (150-450); RED BLOOD COUNT 4.66 10^6/uL (4.30-6.10); WHITE BLOOD COUNT 13.7 10^3/uL (4.0-10.0)
[2022-08-06 23:58] LABS: MB/CK RELATIVE INDEX 1.57 (< OR =4)
[2022-08-07 00:01] LABS: ALT/SGPT 16 U/L (12-78); BILIRUBIN,DIRECT 0.3 MG/DL (0.0-0.2); BLOOD UREA NITROGEN 22 MG/DL (7-18); CALCIUM LEVEL 8.8 MG/DL (8.8-10.2); CARBON DIOXIDE LEVEL 27 MEQ/L (21-32); CHLORIDE LEVEL 102 MEQ/L (98-107); CREATININE FOR GFR 1.04 MG/DL (0.70-1.30); GLOMERULAR FILTRATION RATE > 60.0 (>42); GLUCOSE, FASTING 113 MG/DL (70-100); LIPASE 58 U/L (73-393); NT-PRO BNP 2367 PG/ML (<125); POTASSIUM SERUM 4.6 MEQ/L (3.5-5.1); SODIUM LEVEL 137 MEQ/L (136-145); TOTAL PROTEIN 7.7 GM/DL (6.4-8.2)
[2022-08-07 00:53] LABS: CK-MB VALUE MASS 5.3 NG/ML (<3.6); MB/CK RELATIVE INDEX 1.65 (< OR =4)
[2022-08-07] MEDS ORDERED: HALOPERIDOL 5MG/ML VIAL (J1630 PER 1) IV ONE (01:15)
[2022-08-07] MEDS ORDERED: BISACODYL 10 MG SUPP PR ONE (01:45)
[2022-08-07] MEDS ORDERED: FLEET ENEMA PR ONE (01:45)
[2022-08-07] MEDS ORDERED: ACETAMINOPHEN TAB 650MG DOSE (2X325MG) PO PRN (05:10)
[2022-08-07] MEDS ORDERED: HOME MED LIST COMPLETE! XX SCH (05:20)
[2022-08-07] MEDS: METOPROLOL 5 MG/5 ML VIAL IV SCH ×3 (06:00→06:15)
[2022-08-07] MEDS ORDERED: DIGOXIN INJ 0.5 MG/2 ML AMP IV ONE (06:15)
[2022-08-07] MEDS: DOXYCYCLINE HYCLATE 100 MG in D5W MINI-BAG PLUS 100 ML IV SCH ×2 (06:15→18:13)
[2022-08-07 06:25] LABS: BASO % 0.2 % (0.0-1.0); EOS % 0.1 % (0.0-3.0); HEMATOCRIT 41.6 % (42.0-52.0); HEMOGLOBIN 14.1 g/dl (13.5-17.5); LYMPH # 0.9 10^3/uL (1.5-5.0); LYMPH % 7.8 % (24.0-44.0); MEAN CORPUSCULAR HEMOGLOBIN 32.9 pg (27.0-33.0); MEAN CORPUSCULAR HGB CONC 33.9 g/dl (32.0-36.5); MONO # 0.8 10^3/uL (0.0-0.8); MONO % 6.9 % (2.0-8.0); NEUTROPHILS # 10.1 10^3/uL (1.5-8.5); NEUTROPHILS % 84.5 % (36.0-66.0); PLATELET COUNT, AUTOMATED 250 10^3/uL (150-450); RED BLOOD COUNT 4.29 10^6/uL (4.30-6.10)
[2022-08-07] MEDS ORDERED: IPRATROPIUM 0.5MG/ALBUTEROL 2.5MG INH SOL UD 3ML (DUONEB) NEB PRN (06:25)
[2022-08-07 07:20] LABS: BLOOD UREA NITROGEN 22 MG/DL (7-18); CALCIUM LEVEL 8.5 MG/DL (8.8-10.2); CARBON DIOXIDE LEVEL 26 MEQ/L (21-32); CHLORIDE LEVEL 104 MEQ/L (98-107); CK-MB VALUE MASS 4.4 NG/ML (<3.6); CREATININE FOR GFR 1.11 MG/DL (0.70-1.30); GLOMERULAR FILTRATION RATE > 60.0 (>42); GLUCOSE, FASTING 104 MG/DL (70-100); MAGNESIUM LEVEL 2.1 MG/DL (1.8-2.4); MB/CK RELATIVE INDEX 1.43 (< OR =4); POTASSIUM SERUM 4.9 MEQ/L (3.5-5.1); SODIUM LEVEL 138 MEQ/L (136-145)
[2022-08-07 08:30] VITALS: BP 134/76
[2022-08-07] MEDS: ENOXAPARIN 40MG/0.4ML SYRINGE (J1650 PER 10MG) SC SCH (09:16)
[2022-08-07 11:00] VITALS: BP 102/63
[2022-08-07] MEDS: BACLOFEN 10 MG TAB PO SCH ×3 (11:12→20:07)
[2022-08-07 11:15] VITALS: BP 99/69
[2022-08-07] MEDS ORDERED: NS 1,000 ML IV ONE (11:20)
[2022-08-07 12:00] VITALS: BP 101/57
[2022-08-07] MEDS: MIDODRINE 5 MG TAB PO SCH ×2 (12:25→16:35)
[2022-08-07 12:50] VITALS: BP 109/58
[2022-08-07] MEDS: METOPROLOL TART 25 MG TABLET PO SCH ×3 (12:52→23:54)
[2022-08-07] MEDS ORDERED: ISOVUE-300 61% 50ML VIAL As Ordered ONE (15:11)
[2022-08-07] MEDS ORDERED: ceFAZolin 1GM VIAL (J0690 PER 500MG) As Ordered ONE (15:33)
[2022-08-07 20:00] VITALS: BP 97/52
[2022-08-07] MEDS: AMITRIPTYLINE 10MG TABLET PO SCH (20:07)
[2022-08-08] VITALS (7 sets, daily range): BP systolic 96–121; BP diastolic 52–86
[2022-08-08] MEDS: DOXYCYCLINE HYCLATE 100 MG in D5W MINI-BAG PLUS 100 ML IV SCH ×2 (05:05→17:34)
[2022-08-08] MEDS: METOPROLOL TART 25 MG TABLET PO SCH ×4 (05:07→23:49)
[2022-08-08] MEDS ORDERED: DIGOXIN INJ 0.5 MG/2 ML AMP IV STA (07:23)
[2022-08-08] MEDS: MIDODRINE 5 MG TAB PO SCH ×3 (07:47→16:00)
[2022-08-08] MEDS: BACLOFEN 10 MG TAB PO SCH ×3 (08:16→20:02)
[2022-08-08] MEDS: ENOXAPARIN 40MG/0.4ML SYRINGE (J1650 PER 10MG) SC SCH (08:16)
[2022-08-08] MEDS: AMITRIPTYLINE 10MG TABLET PO SCH (20:02)
[2022-08-08] MEDS: DIGOXIN INJ 0.5 MG/2 ML AMP IV SCH ×2 (20:07→21:48)
[2022-08-09] VITALS (8 sets, daily range): BP systolic 122–155; BP diastolic 72–99
[2022-08-09] MEDS: DOXYCYCLINE HYCLATE 100 MG in D5W MINI-BAG PLUS 100 ML IV SCH ×2 (05:04→18:00)
[2022-08-09] MEDS: METOPROLOL TART 25 MG TABLET PO SCH (05:08)
[2022-08-09 07:28] LABS: HEMATOCRIT 39.4 % (42.0-52.0); HEMOGLOBIN 13.3 g/dl (13.5-17.5); MEAN CORPUSCULAR HGB CONC 33.8 g/dl (32.0-36.5); MEAN CORPUSCULAR VOLUME 94.9 fl (80.0-96.0); PLATELET COUNT, AUTOMATED 243 10^3/uL (150-450); RED BLOOD COUNT 4.15 10^6/uL (4.30-6.10); WHITE BLOOD COUNT 6.3 10^3/uL (4.0-10.0)
[2022-08-09] MEDS ORDERED: atenoloL 25 MG TAB PO ONE (07:30)
[2022-08-09] MEDS: METOPROLOL 5 MG/5 ML VIAL IV SCH ×3 (07:35→08:21)
[2022-08-09] MEDS: MIDODRINE 5 MG TAB PO SCH ×3 (08:00→16:00)
[2022-08-09 08:14] LABS: BLOOD UREA NITROGEN 19 MG/DL (7-18); CALCIUM LEVEL 8.6 MG/DL (8.8-10.2); CARBON DIOXIDE LEVEL 20 MEQ/L (21-32); CHLORIDE LEVEL 107 MEQ/L (98-107); CREATININE FOR GFR 0.93 MG/DL (0.70-1.30); DIGOXIN LEVEL 0.6 NG/ML (0.5-2.0); GLOMERULAR FILTRATION RATE > 60.0 (>42); GLUCOSE, FASTING 106 MG/DL (70-100); SODIUM LEVEL 136 MEQ/L (136-145)
[2022-08-09] MEDS: ENOXAPARIN 40MG/0.4ML SYRINGE (J1650 PER 10MG) SC SCH (08:21)
[2022-08-09] MEDS: BACLOFEN 10 MG TAB PO SCH ×3 (08:22→20:59)
[2022-08-09] MEDS ORDERED: ATEN25TA PO (18:32)
[2022-08-09] MEDS ORDERED: DOXY-444 PO (18:32)
[2022-08-09] MEDS ORDERED: MIDO10TA PO (18:32)
[2022-08-09] MEDS ORDERED: ASPI325T43 PO (18:33)
[2022-08-09] MEDS ORDERED: ALPRAZolam 0.5 MG TAB PO PRN (18:45)
[2022-08-09] MEDS ORDERED: traZODone 50 MG TAB PO PRN (18:45)
[2022-08-09] MEDS: AMITRIPTYLINE 10MG TABLET PO SCH (20:59)
[2022-08-10] VITALS: BP 154/68
[2022-08-10] MEDS: DOXYCYCLINE HYCLATE 100 MG in D5W MINI-BAG PLUS 100 ML IV SCH (05:05)
[2022-08-10 06:21] LABS: HEMATOCRIT 38.8 % (42.0-52.0); HEMOGLOBIN 13.3 g/dl (13.5-17.5); MEAN CORPUSCULAR HEMOGLOBIN 32.9 pg (27.0-33.0); MEAN CORPUSCULAR HGB CONC 34.3 g/dl (32.0-36.5); PLATELET COUNT, AUTOMATED 260 10^3/uL (150-450); RED BLOOD COUNT 4.04 10^6/uL (4.30-6.10); WHITE BLOOD COUNT 6.1 10^3/uL (4.0-10.0)
[2022-08-10 07:00] LABS: BLOOD UREA NITROGEN 18 MG/DL (7-18); CALCIUM LEVEL 8.6 MG/DL (8.8-10.2); CARBON DIOXIDE LEVEL 23 MEQ/L (21-32); CHLORIDE LEVEL 105 MEQ/L (98-107); CREATININE FOR GFR 0.88 MG/DL (0.70-1.30); GLOMERULAR FILTRATION RATE > 60.0 (>42); GLUCOSE, FASTING 86 MG/DL (70-100); SODIUM LEVEL 135 MEQ/L (136-145)
[2022-08-10 07:31] VITALS: BP 127/70
[2022-08-10] MEDS: MIDODRINE 5 MG TAB PO SCH ×2 (08:00→12:00)
[2022-08-10] MEDS ORDERED: MUPIROCIN 2% OINT 22 GM TUBE TOP SCH (09:00)
[2022-08-10] MEDS: BACLOFEN 10 MG TAB PO SCH (09:00)
[2022-08-10] MEDS: ENOXAPARIN 40MG/0.4ML SYRINGE (J1650 PER 10MG) SC SCH (09:00)
[2022-08-10] MEDS ORDERED: MUPI2OI EXT (11:41)
[2022-08-10] MEDS ORDERED: DOXY100C3 PO (11:41)
== END 2022-08-10 12:15 | disposition left against medical advice (07) | DRG 539 ==
LOC: EDBD 22:33 → M ED 22:33 → M ED INP 08-07 05:07 → M ICU 08-07 08:14 → M PCU 08-09 02:45
PROVIDERS: ADMIT Internal Medicine; ATTEND General Practice
DX: M86.172 Other acute osteomyelitis, left ankle and foot (principal); R53.2 Functional quadriplegia; G12.21 Amyotrophic lateral sclerosis; I48.20 Chronic atrial fibrillation, unspecified; Z66 Do not resuscitate; J84.10 Pulmonary fibrosis, unspecified; Z51.5 Encounter for palliative care; Z79.01 Long term (current) use of anticoagulants; K59.00 Constipation, unspecified; L89.899 Pressure ulcer of other site, unspecified stage; Z79.899 Other long term (current) drug therapy; Z79.82 Long term (current) use of aspirin; R13.10 Dysphagia, unspecified; Z91.14 Patient's other noncompliance with medication regimen

== ENCOUNTER 2023-04-04 11:41 | Observation (INO) | payer OTHER ==
[~2023-04-04] VITALS: Ht 185.4 cm; Wt 63.6 kg
[~2023-04-04 11:41] MED LIST changes: +DOXY-444 PO; +DOXY100C3 PO; +MIDO10TA PO; +MUPI2OI EXT; +[UNRECOGNIZED DRUG - CODE] PO
[2023-04-04] MEDS ORDERED: AMIT25TA17 (11:58)
[2023-04-04] MEDS ORDERED: BACL1TAB8 PO ×2 (11:58→20:06)
[2023-04-04] MEDS ORDERED: ATIV1TAB10 (11:58)
[2023-04-04] MEDS ORDERED: POLY510P14 (11:58)
[2023-04-04 12:35] LABS: BASO % 0.8 % (0.0-1.0); EOS # 0.4 10^3/uL (0.0-0.5); EOS % 7.3 % (0.0-3.0); HEMOGLOBIN 14.4 g/dl (13.5-17.5); LYMPH # 1.1 10^3/uL (1.5-5.0); LYMPH % 21.6 % (24.0-44.0); MEAN CORPUSCULAR HEMOGLOBIN 31.7 pg (27.0-33.0); MEAN CORPUSCULAR HGB CONC 33.5 g/dl (32.0-36.5); MEAN CORPUSCULAR VOLUME 94.7 fl (80.0-96.0); MONO # 0.5 10^3/uL (0.0-0.8); MONO % 9.4 % (2.0-8.0); NEUTROPHILS # 3.1 10^3/uL (1.5-8.5); NEUTROPHILS % 60.7 % (36.0-66.0); PLATELET COUNT, AUTOMATED 217 10^3/uL (150-450); RED BLOOD COUNT 4.54 10^6/uL (4.30-6.10); WHITE BLOOD COUNT 5.1 10^3/uL (4.0-10.0)
[2023-04-04 13:29] LABS: LIPASE 23 U/L (12-53)
[2023-04-04 13:32] LABS: ALKALINE PHOSPHATASE 94 U/L (46-116); ALT/SGPT < 9 U/L (7.0-40); AST/SGOT 22 U/L (<34); BILIRUBIN,DIRECT 0.3 MG/DL (<0.4); BILIRUBIN,TOTAL 0.7 MG/DL (0.3-1.2); BLOOD UREA NITROGEN 25 MG/DL (9-23); CALCIUM LEVEL 8.6 MG/DL (8.3-10.6); CARBON DIOXIDE LEVEL 25 MMOL/L (20-31); CHLORIDE LEVEL 106 MMOL/L (98-107); CREATININE FOR GFR 1.06 MG/DL (0.70-1.30); GLOMERULAR FILTRATION RATE > 60.0 (>42); GLUCOSE, FASTING 77 MG/DL (74-106); POTASSIUM SERUM 4.2 MMOL/L (3.5-5.1); SODIUM LEVEL 137 MMOL/L (136-145); TOTAL PROTEIN 6.7 G/DL (5.7-8.2)
[2023-04-04] MEDS ORDERED: FLEET OIL RETENTION ENEMA PR ONE (14:00)
[2023-04-04] MEDS ORDERED: MED REC IN PROGRESS XX SCH (19:30)
[2023-04-04] MEDS ORDERED: ACETAMINOPHEN TAB 650MG DOSE (2X325MG) PO PRN (19:40)
[2023-04-04] MEDS ORDERED: FLEET ENEMA PR PRN (19:40)
[2023-04-04] MEDS: LACTULOSE 20GM/30ML SYRUP UDC PO SCH (19:53)
[2023-04-04] MEDS ORDERED: MED REC CURRENTLY UNOBTAINABLE XX SCH (20:00)
[2023-04-04] MEDS ORDERED: POLY17PO18 PO (20:06)
[2023-04-04] MEDS ORDERED: AMIT25TA17 PO (20:06)
[2023-04-04] MEDS ORDERED: ONDA-83 PO (20:07)
[2023-04-04] MEDS ORDERED: MED REC COMMENT (20:08)
[2023-04-04] MEDS ORDERED: HOME MED LIST COMPLETE! XX SCH (20:10)
[2023-04-04] MEDS ORDERED: ONDANSETRON 4MG TAB PO PRN (20:15)
[2023-04-04] MEDS ORDERED: AMITRIPTYLINE 25MG TABLET PO SCH (21:00)
[2023-04-04 23:00] VITALS: BP 94/66; TEMP 97.3; O2SAT 99
[2023-04-04] MEDS: BACLOFEN 10 MG TAB PO SCH (23:35)
[2023-04-05] MEDS: LACTULOSE 20GM/30ML SYRUP UDC PO SCH ×2 (02:26→12:51)
[2023-04-05] MEDS: BISACODYL 10MG SUPP PR SCH ×2 (02:26→09:13)
[2023-04-05 06:18] VITALS: BP 86/62; TEMP 97.9; O2SAT 97
[2023-04-05 06:29] LABS: HEMATOCRIT 40.6 % (42.0-52.0); HEMOGLOBIN 13.6 g/dl (13.5-17.5); MEAN CORPUSCULAR HEMOGLOBIN 31.8 pg (27.0-33.0); MEAN CORPUSCULAR HGB CONC 33.5 g/dl (32.0-36.5); MEAN CORPUSCULAR VOLUME 94.9 fl (80.0-96.0); PLATELET COUNT, AUTOMATED 229 10^3/uL (150-450); RED BLOOD COUNT 4.28 10^6/uL (4.30-6.10)
[2023-04-05 06:47] LABS: BLOOD UREA NITROGEN 25 MG/DL (9-23); CALCIUM LEVEL 8.5 MG/DL (8.3-10.6); CARBON DIOXIDE LEVEL 23 MMOL/L (20-31); CHLORIDE LEVEL 105 MMOL/L (98-107); CREATININE FOR GFR 0.95 MG/DL (0.70-1.30); GLOMERULAR FILTRATION RATE > 60.0 (>42); GLUCOSE, FASTING 70 MG/DL (74-106); MAGNESIUM LEVEL 2.1 MG/DL (1.8-2.4); POTASSIUM SERUM 4.1 MMOL/L (3.5-5.1); SODIUM LEVEL 136 MMOL/L (136-145)
[2023-04-05] MEDS ORDERED: DOCUSATE SODIUM 100MG CAPSULE PO SCH (09:00)
[2023-04-05] MEDS ORDERED: MIRALAX *UNIT DOSE* 17GM PACKET PO SCH (09:00)
[2023-04-05] MEDS: BACLOFEN 10 MG TAB PO SCH (09:14)
[2023-04-05 11:00] VITALS: BP 108/64
[2023-04-05] MEDS ORDERED: COLA100C5 PO (11:31)
[2023-04-05] MEDS ORDERED: BISA10SU PR (11:31)
[2023-04-05 12:00] VITALS: BP 110/70
[2023-04-05 14:00] VITALS: BP 123/82; TEMP 97.5; O2SAT 98
== END 2023-04-05 15:55 | disposition home health service (06) ==
LOC: M ED 11:41 → M ED INP 19:37 → ENRESERV 21:48 → M MS5PR 23:00
PROVIDERS: ADMIT Family Medicine; ATTEND Family Medicine
DX: K56.41 Fecal impaction (principal); I48.91 Unspecified atrial fibrillation; G12.21 Amyotrophic lateral sclerosis; Z79.899 Other long term (current) drug therapy

== ENCOUNTER 2023-04-26 11:19 | Inpatient (IN) | payer MEDICARE, OTHER ==
[~2023-04-26 11:19] MED LIST changes: +AMIT25TA17; +AMIT25TA17 PO; +ATIV1TAB10; +BACL1TAB8 PO; +BISA10SU PR; +COLA100C5 PO; +MED REC COMMENT; +ONDA-83 PO; +POLY510P14
[2023-04-26] MEDS ORDERED: NS 500 ML IV ONE (11:40)
[2023-04-26] MEDS ORDERED: NS 1,000 ML IV SCH (11:40)
[2023-04-26] MEDS ORDERED: PANTOPRAZOLE 40MG VIAL IV ONE (12:00)
[2023-04-26 12:04] LABS: BASO % 0.3 % (0.0-1.0); EOS % 0.2 % (0.0-3.0); HEMATOCRIT 46.4 % (42.0-52.0); HEMOGLOBIN 15.3 g/dl (13.5-17.5); LYMPH # 0.7 10^3/uL (1.5-5.0); LYMPH % 6.1 % (24.0-44.0); MEAN CORPUSCULAR HEMOGLOBIN 31.6 pg (27.0-33.0); MEAN CORPUSCULAR VOLUME 95.9 fl (80.0-96.0); MONO # 0.5 10^3/uL (0.0-0.8); MONO % 4.2 % (2.0-8.0); NEUTROPHILS % 88.8 % (36.0-66.0); PLATELET COUNT, AUTOMATED 245 10^3/uL (150-450); RED BLOOD COUNT 4.84 10^6/uL (4.30-6.10); WHITE BLOOD COUNT 11.2 10^3/uL (4.0-10.0)
[2023-04-26 12:15] LABS: INR 0.98; PROTHROMBIN TIME 13.2 SECONDS (12.5-14.5)
[2023-04-26 12:16] LABS: PARTIAL THROMBOPLASTIN TIME 30.2 SECONDS (24.8-34.2)
[2023-04-26 12:26] LABS: LIPASE 25 U/L (12-53)
[2023-04-26 12:27] LABS: CK-MB VALUE MASS 1.6 NG/ML (<3.6)
[2023-04-26 12:28] LABS: ALBUMIN 3.1 G/DL (3.2-5.2); ALKALINE PHOSPHATASE 91 U/L (46-116); ALT/SGPT 9 U/L (7.0-40); AMYLASE 227 U/L (30-118); AST/SGOT 10 U/L (<34); BILIRUBIN,DIRECT 0.2 MG/DL (<0.4); BILIRUBIN,TOTAL 0.5 MG/DL (0.3-1.2); BLOOD UREA NITROGEN 24 MG/DL (9-23); CALCIUM LEVEL 8.5 MG/DL (8.3-10.6); CARBON DIOXIDE LEVEL 25 MMOL/L (20-31); CHLORIDE LEVEL 104 MMOL/L (98-107); CPK CREATINE PHOSPHOKINASE 64 U/L (46-171); CREATININE FOR GFR 0.95 MG/DL (0.70-1.30); GLOMERULAR FILTRATION RATE > 60.0 (>42); GLUCOSE, FASTING 123 MG/DL (74-106); POTASSIUM SERUM 4.2 MMOL/L (3.5-5.1); RSV AMPLIFICATION NEGATIVE (NEGATIVE); SODIUM LEVEL 138 MMOL/L (136-145); TOTAL PROTEIN 7.2 G/DL (5.7-8.2)
[2023-04-26] MEDS ORDERED: ISOVUE-370 76% 100ML VIAL As Ordered ONE (13:23)
[2023-04-26 15:17] LABS: CK-MB VALUE MASS < 1.0 NG/ML (<3.6)
[2023-04-26 15:24] LABS: CPK CREATINE PHOSPHOKINASE 32 U/L (46-171); MB/CK RELATIVE INDEX 3.12 (< OR =4)
[2023-04-26] MEDS ORDERED: MED REC CURRENTLY UNOBTAINABLE XX SCH (15:30)
[2023-04-26] MEDS ORDERED: FLEET ENEMA PR STA (15:52)
[2023-04-26 16:45] VITALS: BP 140/71; TEMP 97.6; O2SAT 90
[2023-04-26] MEDS ORDERED: ONDANSETRON 4MG 2ML VIAL IV PRN (17:00)
[2023-04-26] MEDS: LACTULOSE 20GM/30ML SYRUP UDC PO SCH (18:11)
[2023-04-26] MEDS: SUCRALFATE SUSP 1GM/10ML UD PO SCH ×2 (18:11→21:10)
[2023-04-26 18:15] LABS: HEMATOCRIT 41.4 % (42.0-52.0); HEMOGLOBIN 13.9 g/dl (13.5-17.5)
[2023-04-26] MEDS ORDERED: ASPI-1 PO (19:06)
[2023-04-26] MEDS ORDERED: MILKSUS3 PO (19:06)
[2023-04-26 19:38] VITALS: BP 132/75; TEMP 97.5; O2SAT 94
[2023-04-26] MEDS ORDERED: HOME MED LIST COMPLETE! XX SCH (19:40)
[2023-04-26] MEDS ORDERED: FLEET ENEMA PR SCH (21:00)
[2023-04-26] MEDS: PANTOPRAZOLE 40MG VIAL IV SCH (21:11)
[2023-04-26 22:58] VITALS: BP 111/74; TEMP 97.5; O2SAT 96
[2023-04-27 03:45] VITALS: BP 115/61; TEMP 97.6; O2SAT 92
[2023-04-27 05:05] LABS: BASO % 0.6 % (0.0-1.0); EOS # 0.2 10^3/uL (0.0-0.5); HEMOGLOBIN 12.9 g/dl (13.5-17.5); LYMPH # 1.4 10^3/uL (1.5-5.0); LYMPH % 21.2 % (24.0-44.0); MEAN CORPUSCULAR HEMOGLOBIN 31.4 pg (27.0-33.0); MEAN CORPUSCULAR HGB CONC 33.1 g/dl (32.0-36.5); MEAN CORPUSCULAR VOLUME 94.9 fl (80.0-96.0); MONO # 0.5 10^3/uL (0.0-0.8); MONO % 7.6 % (2.0-8.0); NEUTROPHILS # 4.5 10^3/uL (1.5-8.5); NEUTROPHILS % 67.4 % (36.0-66.0); PLATELET COUNT, AUTOMATED 212 10^3/uL (150-450); RED BLOOD COUNT 4.11 10^6/uL (4.30-6.10); WHITE BLOOD COUNT 6.6 10^3/uL (4.0-10.0)
[2023-04-27 05:16] LABS: BLOOD UREA NITROGEN 25 MG/DL (9-23); CALCIUM LEVEL 8.3 MG/DL (8.3-10.6); CARBON DIOXIDE LEVEL 24 MMOL/L (20-31); CHLORIDE LEVEL 105 MMOL/L (98-107); CREATININE FOR GFR 1.04 MG/DL (0.70-1.30); GLOMERULAR FILTRATION RATE > 60.0 (>42); GLUCOSE, FASTING 82 MG/DL (74-106); POTASSIUM SERUM 4.1 MMOL/L (3.5-5.1); SODIUM LEVEL 137 MMOL/L (136-145)
[2023-04-27] MEDS: LACTULOSE 20GM/30ML SYRUP UDC PO SCH ×3 (06:00→11:35)
[2023-04-27 07:36] VITALS: BP 110/63; TEMP 97.6; O2SAT 93
[2023-04-27] MEDS ORDERED: BACLOFEN 10 MG TAB PO SCH (09:00)
[2023-04-27] MEDS ORDERED: SUCR1ORA2 PO (09:12)
[2023-04-27] MEDS ORDERED: PANT40TA29 PO (09:12)
[2023-04-27] MEDS ORDERED: LACT20EL PO (09:12)
[2023-04-27] MEDS: PANTOPRAZOLE 40MG VIAL IV SCH (10:05)
[2023-04-27] MEDS: SUCRALFATE SUSP 1GM/10ML UD PO SCH ×2 (10:06→12:26)
[2023-04-27] MEDS ORDERED: ECOT81TA5 PO (10:51)
[2023-04-27 11:00] LABS: HEMATOCRIT 35.6 % (42.0-52.0); HEMOGLOBIN 11.9 g/dl (13.5-17.5)
[2023-04-27 11:30] VITALS: BP 104/67; TEMP 97.4; O2SAT 92
[2023-04-27 15:31] LABS: HEMATOCRIT 35.6 % (42.0-52.0)
[2023-04-27] MEDS ORDERED: AMITRIPTYLINE 50 MG TAB PO SCH (21:00)
== END 2023-04-27 16:47 | disposition home or self-care (01) | DRG 378 ==
LOC: M ED 11:19 → M ED INP 15:02 → M PCU 16:30
PROVIDERS: ADMIT Internal Medicine; ATTEND Internal Medicine
DX: K92.0 Hematemesis (principal); E87.20 Acidosis, unspecified; G12.21 Amyotrophic lateral sclerosis; K59.39 Other megacolon; J84.9 Interstitial pulmonary disease, unspecified; I48.91 Unspecified atrial fibrillation; K56.41 Fecal impaction; K29.70 Gastritis, unspecified, without bleeding; E86.0 Dehydration; Z79.899 Other long term (current) drug therapy; Z79.82 Long term (current) use of aspirin; Z66 Do not resuscitate

== ENCOUNTER 2023-10-10 06:28 | Observation (INO) | payer OTHER, MEDICARE ==
[~2023-10-10] VITALS: Ht 175.3 cm; Wt 64.6 kg
[~2023-10-10 06:28] MED LIST changes: -AMIT25TA17; -AMIT25TA17 PO; +AMIT25TA19; +AMIT25TA19 PO; +ASPI-1 PO; +ECOT81TA5 PO; +LACT20EL PO; +MILKSUS3 PO; +PANT40TA29 PO; +SUCR1ORA2 PO
[2023-10-10 06:59] LABS: BASO # 0.1 10^3/uL (0.0-0.2); BASO % 0.6 % (0.0-1.0); EOS # 0.5 10^3/uL (0.0-0.5); EOS % 6.3 % (0.0-3.0); HEMATOCRIT 42.4 % (42.0-52.0); HEMOGLOBIN 14.1 g/dl (13.5-17.5); LYMPH # 1.3 10^3/uL (1.5-5.0); LYMPH % 16.6 % (24.0-44.0); MEAN CORPUSCULAR HEMOGLOBIN 31.3 pg (27.0-33.0); MEAN CORPUSCULAR HGB CONC 33.3 g/dl (32.0-36.5); MONO # 0.9 10^3/uL (0.0-0.8); MONO % 11.2 % (2.0-8.0); NEUTROPHILS # 5.1 10^3/uL (1.5-8.5); NEUTROPHILS % 65.2 % (36.0-66.0); PLATELET COUNT, AUTOMATED 247 10^3/uL (150-450); RED BLOOD COUNT 4.51 10^6/uL (4.30-6.10); WHITE BLOOD COUNT 7.8 10^3/uL (4.0-10.0)
[2023-10-10 07:25] LABS: ALBUMIN 2.7 G/DL (3.2-5.2); ALKALINE PHOSPHATASE 85 U/L (46-116); ALT/SGPT < 9 U/L (7.0-40); AST/SGOT 12 U/L (<34); BILIRUBIN,DIRECT 0.4 MG/DL (<0.4); BILIRUBIN,TOTAL 0.9 MG/DL (0.3-1.2); BLOOD UREA NITROGEN 22 MG/DL (9-23); CALCIUM LEVEL 8.4 MG/DL (8.3-10.6); CARBON DIOXIDE LEVEL 28 MMOL/L (20-31); CHLORIDE LEVEL 107 MMOL/L (98-107); CK-MB VALUE MASS < 1.0 NG/ML (<3.6); CREATININE FOR GFR 1.05 MG/DL (0.70-1.30); GLOMERULAR FILTRATION RATE > 60.0 (>42); GLUCOSE, FASTING 92 MG/DL (74-106); POTASSIUM SERUM 4.2 MMOL/L (3.5-5.1); SODIUM LEVEL 136 MMOL/L (136-145); TOTAL PROTEIN 6.7 G/DL (5.7-8.2)
[2023-10-10 07:27] LABS: THYROID STIMULATING HORMONE 2.554 uIU/ML (0.55-4.78)
[2023-10-10 07:30] LABS: CPK CREATINE PHOSPHOKINASE 74 U/L (46-171); MB/CK RELATIVE INDEX 1.35 (< OR =4)
[2023-10-10] MEDS ORDERED: ISOVUE-370 76% 100ML VIAL As Ordered ONE (07:42)
[2023-10-10] MEDS ORDERED: NS 500 ML IV ONE (08:15)
[2023-10-10] MEDS ORDERED: BACL10TA2 PO (08:24)
[2023-10-10] MEDS ORDERED: PIPERACILLIN/TAZOBACTAM SOD 4.5 GM in D5W MINI-BAG PLUS 50 ML IV ONE (09:00)
[2023-10-10] MEDS ORDERED: MED REC IN PROGRESS XX SCH (09:25)
[2023-10-10] MEDS ORDERED: LIDOCAINE 2% 5ML JELLY UROJET TOP ONE (09:25)
[2023-10-10] MEDS ORDERED: ASPI81TA26 PO (11:20)
[2023-10-10] MEDS ORDERED: PANT-23 PO (11:20)
[2023-10-10] MEDS ORDERED: LACT20EL PO (11:20)
[2023-10-10] MEDS ORDERED: HOME MED LIST COMPLETE! XX SCH (11:35)
[2023-10-10] MEDS ORDERED: LACTULOSE 20GM/30ML SYRUP UDC PO PRN (11:40)
[2023-10-10 12:10] VITALS: BP 90/58
[2023-10-10] MEDS: BACLOFEN 10 MG TAB PO SCH ×2 (13:02→20:27)
[2023-10-10] MEDS: NS 1,000 ML IV SCH (13:27)
[2023-10-10 14:00] VITALS: BP 100/62; TEMP 97.5; O2SAT 97
[2023-10-10] MEDS ORDERED: ASPIRIN 81MG ENTERIC TABLET PO SCH (21:00)
[2023-10-10] MEDS ORDERED: PANTOPRAZOLE 40MG TAB (PROTONIX) PO SCH (21:00)
[2023-10-10 21:25] VITALS: BP 105/42; TEMP 98.8; O2SAT 94
[2023-10-11] MEDS: NS 1,000 ML IV SCH (01:38)
[2023-10-11 05:57] VITALS: BP 96/43; TEMP 97.2; O2SAT 97
[2023-10-11] MEDS: BACLOFEN 10 MG TAB PO SCH (08:40)
[2023-10-11] MEDS ORDERED: FLUZONE HIGH DOSE(65YR UP)QUAD/PF 240MCG/0.7ML SYRINGE IM.IMMUN ONE (12:00)
[2023-10-11] MEDS ORDERED: PREVNAR-20 VACCINE 0.5ML SYRINGE IM.IMMUN ONE (12:00)
== END 2023-10-11 13:54 | disposition home health service (06) ==
LOC: M ED 06:28 → EDBD 06:28 → M ED INP 09:42 → M MSPAV 11:55
PROVIDERS: ADMIT Internal Medicine; ATTEND Internal Medicine
DX: L30.4 Erythema intertrigo (principal); I48.91 Unspecified atrial fibrillation; R13.10 Dysphagia, unspecified; G12.21 Amyotrophic lateral sclerosis; K21.9 Gastro-esophageal reflux disease without esophagitis; K59.00 Constipation, unspecified; J84.9 Interstitial pulmonary disease, unspecified; Z79.82 Long term (current) use of aspirin; Z79.899 Other long term (current) drug therapy; Z23 Encounter for immunization
CPT/HCPCS: 70450; 71045; 71275; 74177; 80048; 80076; 82550; 82553; 83605; 84443; 84484; 85025; 87040; 87486; 87581; 87633; 87798; 90662; 90677; 92610; 93005; 96361; 96365; 96375; 99285; G0008; G0009; J2543; Q9967